=== PATIENT | male | born 1980 | race African-American/Black ===

== ENCOUNTER 2018-02-07 06:56 | Emergency (ER) | payer OTHER ==
[~2018-02-07] VITALS: Ht 180.3 cm; Wt 107.0 kg
== END 2018-02-07 07:47 | disposition home or self-care (01) ==
LOC: FSED 06:56
DX: M54.5 Low back pain (principal); S39.012A Strain of muscle, fascia and tendon of lower back, initial encounter; F17.220 Nicotine dependence, chewing tobacco, uncomplicated
CPT/HCPCS: 99283